=== PATIENT | female | born 1955 | race Caucasian/White ===

== ENCOUNTER 2017-02-02 11:29 | Inpatient (IN) | payer OTHER, MEDICARE ==
[~2017-02-02] VITALS: Ht 152.4 cm; Wt 84.0 kg
[2017-02-27] MEDS ORDERED: GABA300C5 PO (14:34)
[2017-02-27] MEDS ORDERED: HYDR25TA5 PO (14:34)
[2017-02-27] MEDS ORDERED: VENTAER INH (14:34)
[2017-02-27] MEDS ORDERED: CALC1TAB53 PO (14:34)
[2017-02-27] MEDS ORDERED: HYDR-3516 PO (14:34)
[2017-02-27] MEDS ORDERED: DICY20TA10 PO (14:34)
[2017-02-27] MEDS ORDERED: MONT10TA4 PO (14:34)
[2017-02-27] MEDS ORDERED: ASPI1TAB69 PO (14:34)
[2017-02-27] MEDS ORDERED: VITA10003 PO (14:34)
[2017-02-27] MEDS ORDERED: ATOR40TA16 PO (14:34)
[2017-02-27] MEDS ORDERED: AMLO10TA2 PO (14:34)
[2017-03-02] MEDS ORDERED: METOPROLOL TARTRATE 25 MG TAB PO PRN (09:00)
[2017-03-02] MEDS ORDERED: CHLORHEXIDINE GLUCONATE 2 % 1 PACK (2 CLOTHS) TOPICAL PRN (09:00)
[2017-03-02] MEDS ORDERED: SODIUM CHLORID 0.9% 500 ML IV PRN (09:00)
[2017-03-02] MEDS ORDERED: ceFAZolin 2 GM PREMIX 50 ML IV SCH (09:00)
[2017-03-02] MEDS ORDERED: INSULIN HUMAN REGULAR 1,000 UNITS/10 ML VIAL SQ PRN (09:00)
[2017-03-02] MEDS ORDERED: POVIDONE IODINE 5% (ANTISEPSIS KIT) 4 APPLICATIONS EACH NARE PRN (09:00)
[2017-03-02] MEDS ORDERED: LACTATED RINGER'S 1000 ML IV PRN (09:00)
[2017-03-02] MEDS ORDERED: HEPARIN SODIUM - SQ 10,000 UNITS/ML VIAL SQ SCH (09:00)
[2017-03-02] MEDS ORDERED: CLAR10CA3 PO (09:10)
[2017-03-02] MEDS ORDERED: ZYRT10CA PO (09:10)
[2017-03-02 09:11] VITALS: BP 185/87; PULSE 105; RESP 18; TEMP 98; O2SAT 98
[2017-03-02] MEDS ORDERED: ONDANSETRON HCL 4 MG/2 ML VIAL ONE (09:25)
[2017-03-02] MEDS ORDERED: ZOFR4TAB3 SL (09:26)
[2017-03-02] MEDS ORDERED: RESP: ALBUTEROL 2.5 MG/3 ML NEB (SCH) ONE (09:28)
[2017-03-02] MEDS ORDERED: METR-1 PO (09:29)
[2017-03-02 09:36] LABS: BASOPHIL # 0.1 TH/MM3 (0-0.2); BASOPHIL % 0.7 % (0.0-2.0); EOSINOPHIL # 0.1 TH/MM3 (0-0.4); EOSINOPHIL % 0.8 % (0.0-4.0); HEMATOCRIT 40.6 % (35.0-46.0); HEMO FLAGS DIFF FINAL; LYMPH % 21.2 % (9.0-44.0); LYMPHOCYTE # 1.8 TH/MM3 (1.0-4.8); MEAN CELL VOLUME 85.5 FL (80.0-100.0); MEAN CORPUSCULAR HEMOGLOBIN 28.8 PG (27.0-34.0); MEAN CORPUSCULAR HGB CONC 33.7 % (32.0-36.0); MONO % 5.5 % (0.0-8.0); NEUT % 71.8 % (16.0-70.0); PLATELET COUNT 226 TH/MM3 (150-450); RED BLOOD COUNT 4.74 MIL/MM3 (4.00-5.30); WHITE BLOOD COUNT 8.4 TH/MM3 (4.0-11.0)
[2017-03-02 09:45] LABS: APTT (PATIENT) 25.7 SEC (24.3-30.1); PROTHROMBIN TIME - PATIENT 10.5 SEC (9.8-11.6)
[2017-03-02 10:08] LABS: ALKALINE PHOSPHATASE 116 U/L (45-117); ALT (GPT) 42 U/L (10-53); ANION GAP 12 MEQ/L (5-15); AST (GOT) 29 U/L (15-37); BICARBONATE 27.3 MEQ/L (21.0-32.0); BLOOD UREA NITROGEN 7 MG/DL (7-18); CHLORIDE 99 MEQ/L (98-107); GLOMERULAR FILTRATION RATE 56 ML/MIN (>89); SODIUM (NA) 138 MEQ/L (136-145); TOTAL BILIRUBIN ADULT 0.7 MG/DL (0.2-1.0)
[2017-03-02 10:10] LABS: POTASSIUM 2.6 MEQ/L (3.5-5.1)
[2017-03-02] MEDS ORDERED: NS + KCL 40 MEQ INJ 1,000 ML IV SCH (12:00)
[2017-03-02] MEDS ORDERED: HYDROmorphone HCL PF 2 MG/ML VIAL ONE (12:15)
[2017-03-02] MEDS ORDERED: ACETAMINOPHEN 1000 MG/100 ML VIAL IV ONE (12:15)
[2017-03-02] MEDS ORDERED: SUGAMMADEX SODIUM 200 MG/2 ML VIAL IV PUSH ONE ×2 (12:15)
[2017-03-02] MEDS ORDERED: POTASSIUM CHLORIDE INJ 40 MEQ in SODIUM CHLORID 0.9% 500 ML INJ 500 ML IV ONE (12:15)
[2017-03-02] MEDS ORDERED: FAMOTIDINE 20 MG/2 ML VIAL ONE (12:16)
--- NOTE | 2017-03-02 13:04 | EKG ---
Date Performed: 03/02/2017 Time Performed: 09:50:52 PTAGE: 61 years EKG: SINUS TACHYCARDIA LOW QRS VOLTAGE IN PRECORDIAL LEADS NONSPECIFIC T-WAVE ABNORMALITY ABNORM AL RHYTHM ECG NO PREVIOUS TRACING DOCTOR: Alberto Gray Interpretating Date/Time 03/02/2017 13:01:42
[2017-03-02] MEDS ORDERED: PROPOFOL 200 MG/20 ML AMP IV ONE (14:05)
[2017-03-02] MEDS ORDERED: KETOROLAC TROMETHAMINE 60 MG/2 ML (IM) VIAL IM ONE (14:06)
[2017-03-02] MEDS ORDERED: ONDANSETRON HCL 4 MG/2 ML VIAL IV PUSH ONE (14:07)
[2017-03-02] MEDS ORDERED: LACTATED RINGER'S 1000 ML INJ 2,000 ML IV ONE (14:07)
[2017-03-02] MEDS ORDERED: ceFAZolin INJ 1,000 MG VIAL IV ONE (15:00)
[2017-03-02] MEDS ORDERED: MIDAZOLAM HCL 2 MG/2 ML VIAL ONE (15:07)
[2017-03-02] MEDS ORDERED: NALOXONE HCL 0.4 MG/ML AMP IV PRN (16:15)
[2017-03-02] MEDS ORDERED: SODIUM CHLORIDE 0.9% FLUSH 10 ML FLUSH IV FLUSH PRN (16:15)
[2017-03-02] MEDS ORDERED: ONDANSETRON ODT 4 MG TAB SL PRN (16:15)
[2017-03-02] MEDS ORDERED: DICYCLOMINE HCL 20 MG TAB PO PRN (16:15)
[2017-03-02] MEDS ORDERED: diphenhydrAMINE HCL 25 MG CAP PO PRN (16:15)
[2017-03-02] MEDS ORDERED: KETOROLAC TROMETHAMINE 30 MG/ML (IVP) VIAL IVP SCH (16:15)
[2017-03-02] MEDS: RESP: ALBUTEROL 2.5 MG/3 ML NEB (SCH) NEB ×2 (16:30→23:46)
[2017-03-02] MEDS: D5-1/2 NS + KCL 40 MEQ INJ 1,000 ML IV SCH (16:30)
[2017-03-02] MEDS: MORPHINE SULFATE 30 MG/30 ML PCA IV SCH (16:49)
[2017-03-02] MEDS ORDERED: DO NOT ADM ANY ANTICOAGULANT DRUGS PRN (17:45)
[2017-03-02 18:17] VITALS: BP 140/64; PULSE 120; RESP 16; TEMP 96.6; O2SAT 98
[2017-03-02] MEDS: SODIUM CHLORIDE 0.9% FLUSH 10 ML FLUSH IV FLUSH SCH (21:00)
[2017-03-02 21:30] VITALS: BP 130/63; PULSE 111; RESP 18; TEMP 98.1; O2SAT 98
[2017-03-02] MEDS: GABAPENTIN 300 MG CAP PO SCH (21:42)
[2017-03-02] MEDS: MONTELUKAST SODIUM 10 MG TAB PO SCH (21:42)
[2017-03-02] MEDS: KETOROLAC TROMETHAMINE 30 MG/ML (IVP) VIAL IVP SCH (21:42)
[2017-03-02] MEDS: ATORVASTATIN 40 MG TAB PO SCH (21:42)
[2017-03-02] MEDS: PCA - TOTAL MG MORPHINE DELIVERED PER SHIFT SCH (22:12)
[2017-03-02 23:48] VITALS: O2SAT 98
[2017-03-03] VITALS (8 sets, daily range): BP systolic 118–133; BP diastolic 60–66; PULSE 84–114; RESP 15–18; TEMP 96.6–98.3; O2SAT 93–98
[2017-03-03] MEDS: D5-1/2 NS + KCL 40 MEQ INJ 1,000 ML IV SCH ×3 (00:07→08:41)
[2017-03-03] MEDS: KETOROLAC TROMETHAMINE 30 MG/ML (IVP) VIAL IVP SCH ×4 (04:39→22:54)
[2017-03-03] MEDS: PCA - TOTAL MG MORPHINE DELIVERED PER SHIFT SCH ×3 (06:10→22:00)
[2017-03-03] MEDS: RESP: ALBUTEROL 2.5 MG/3 ML NEB (SCH) NEB ×3 (07:39→23:48)
[2017-03-03] MEDS: CETIRIZINE HCL 10 MG TAB PO SCH (08:41)
[2017-03-03] MEDS: HYDROCHLOROTHIAZIDE 25 MG TAB PO SCH (08:41)
[2017-03-03] MEDS: SODIUM CHLORIDE 0.9% FLUSH 10 ML FLUSH IV FLUSH SCH ×2 (08:42→22:54)
[2017-03-03] MEDS ORDERED: LORATADINE 10 MG TAB PO SCH (09:00)
[2017-03-03 09:15] LABS: AUTOMATED NEUTROPHIL # 11.7 TH/MM3 (1.8-7.7); BASOPHIL % 0.1 % (0.0-2.0); HEMATOCRIT 34.7 % (35.0-46.0); LYMPH % 11.3 % (9.0-44.0); LYMPHOCYTE # 1.6 TH/MM3 (1.0-4.8); MEAN CELL VOLUME 86.6 FL (80.0-100.0); MEAN CORPUSCULAR HEMOGLOBIN 29.4 PG (27.0-34.0); MEAN CORPUSCULAR HGB CONC 33.9 % (32.0-36.0); MONO % 6.4 % (0.0-8.0); NEUT % 82.2 % (16.0-70.0); PLATELET COUNT 225 TH/MM3 (150-450); RED CELL DISTRIBUTION WIDTH 14.3 % (11.6-17.2); WHITE BLOOD COUNT 14.2 TH/MM3 (4.0-11.0)
[2017-03-03 09:25] LABS: HEMO FLAGS AUTO DIFF
[2017-03-03 10:06] LABS: BICARBONATE 24.5 MEQ/L (21.0-32.0); POTASSIUM 3.5 MEQ/L (3.5-5.1)
[2017-03-03 10:33] LABS: SCAN/DIFF AUTO DIFF CONFIRMED
[2017-03-03] MEDS: MORPHINE SULFATE 30 MG/30 ML PCA IV SCH (11:41)
--- NOTE | 2017-03-03 12:47 | MP ---
cc: SAMMIE PETE KELLY L. MD MATHURA, SHIVA DATE OF SURGERY 03/02/2017 PREOPERATIVE DIAGNOSIS Approximately 18 cm complex pelvic mass. POSTOPERATIVE DIAGNOSIS Right ovarian cystadenofibroma with torsion, inflammation necrosis and extensive adhesions. PROCEDURE Exploratory laparotomy, total abdominal hysterectomy, omentectomy, extensive lysis of adhesions. 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 Her history was such that she has a tendency towards adhesions. She has had an open cholecystectomy. She has also had a tubal ligation. She has had a prior exploratory laparotomy for intestinal obstruction with intestinal resection due to adhesions. She has been counseled regarding these findings, recommended open surgery, did not feel she was a good candidate for laparoscopy. She is seen again the preop holding area where these findings and recommendations are discussed. Questions were answered. She expressed good understanding and wishes to move forward with surgery. Irrespective of the pathology, she is in favor of complete hysterectomy to remove the uterus and cervix, both tubes and ovaries and she understands if a malignancy is detected, additional staging steps are recommended. FINDINGS Entry into the peritoneal was slow and meticulous due to scar tissue in the abdominal wall. Omentum was densely adherent to the abdominal wall overlying the mass. The transverse colon was adherent below the umbilicus in the reason of the midline incision. Loops of small bowel wall were also adherent. Lysis of adhesions were necessary to take these adhesions down. The mass was surrounded by inflammatory adhesions circumferentially stuck to all tissues next to it. Many of the adhesions were filmy and could be removed with blunt dissection somewhere firm and required sharp dissection to remove loops of bowel, mesentery and adjacent structures. Once the mass was able to be isolated, it was clearly torsed with what appeared to be 720 degrees of torsion on the ovarian vessels. The left ovary was enlarged to approximately 4 cm, had similar characteristics and ultimately pathology showed bilateral ovarian cyst adenofibromas. The uterus itself was small and appeared normal. There were no peritoneal implants. The liver diaphragm edges were smooth. The omentum grossly appeared normal despite all the adhesions. The small, large bowel, and adjacent mesentery appeared normal. At the conclusion of the case, all significant adhesions had been lysed and there was advent of normal anatomy. Visual and manual inspection confirmed that adhesions had been taken down. There were no other areas of abnormality. No adenopathy. No remaining foreign objects in the peritoneal cavity. STATEMENT OF COMPLEXITY The complexity of this case was significantly increased due to the dense extensive adhesions requiring a significant amount of time to lyse adhesions to gain safe entry into the peritoneal cavity. To restore normal anatomy and to accomplish surgical objectives, modifier should be applied accordingly. PROCEDURE The patient taken to the operating room, placed in the dorsal lithotomy position after general endotracheal anesthesia was administered. A time-out was undertaken. The patient was identified by sight recognition and hospital ID bracelet and the proposed procedure was reviewed and confirmed. She was carefully positioned in Eladio stirrups. Her arms were out to the sides. She was prepped and draped in a sterile fashion. Farrar catheter placed in the bladder. Ioban was used to cover the abdominal wall and an oral gastric tube was in the stomach on suction. An incision was made through the skin and carried down to the subcutaneous tissue using cautery down to level of the fascia. Sharp dissection was used to separate the fascia until a window of peritoneum was isolated. This was elevated with hemostats and sharp dissection was used to gain entry into the peritoneal cavity. Lysis of adhesion was required upon entry as described above to mobilize the omentum and free loops of bowel laterally to gain safe access as the peritoneal incision was extended. Adhesions were taken down to mobilize the transverse colon which was overlying the region of the incision below the umbilicus. Blunt and sharp dissection was used circumferentially to gradually remove adhesions around all aspects of the mass with care taken to leave the capsule of the mass intact. There was no rupture capsule and no spill. As the left lateral and posterior sides were mobilized that allowed access to a pelvic portion in the cul-de-sac where adhesions were lysed. Then the mass was gently moved to the left as though it helped gain access to the right side where blunt sharp dissection was used to free up adhesions circumferentially until the mass could be elevated out of the abdominal wall attached by the torsed gonadal vessels. In the process of trying to gain entry, the omentum was fragmented and adherent and parts appeared to be possibly devitalized so an omentectomy was performed as a necessity to gain entry into the peritoneal cavity. Nonvascular attachments were taken down from the transverse colon with sharp dissection. Vascular attachments were isolated, clamped, cut and suture ligated with 2-0 Vicryl sutures until the majority of the infracolic omentum had been removed. The right round ligament was doubly suture ligated and transected. The anterior and posterior leafs of the broad ligament were opened. The right ureter was identified. The right infundibulopelvic ligament was isolated. The intervening peritoneum was opened. The infundibulopelvic ligament was doubly clamped the level of the pelvic brim, cut and doubly suture ligated. The right utero-ovarian ligament was clamped, cut and suture ligated thereby removing the right tube and ovary with approximately 18 cm mass, sent for frozen section analysis with findings as described above. The posterior peritoneum opened along the right side of the uterus and cervix and the right vesicouterine peritoneum was dissected off the lower uterine segment and cervix and the right uterine vessels were skeletonized. Attention was directed toward the left side. The left round ligament doubly suture ligated and transected. Anterior and posterior leafs of the broad ligament were opened. The left ureter was identified. The left infundibulopelvic ligament was isolated. The intervening peritoneum was opened. The infundibulopelvic ligament was dissected, isolated to the level of the pelvic brim, where was doubly clamped, cut and suture ligated. Posterior peritoneum opened along the left side of the uterus and cervix. The left vesicouterine peritoneum was dissected off the lower uterine segment and cervix. The uterine vessels were skeletonized. The uterine vessels were now clamped, cut and suture ligated bilaterally as were the cardinal, paracervical, and uterosacral ligaments in a stepwise fashion where the tissues were clamped, cut and suture ligated with 0 Vicryl sutures until curved Herber's clamps could be placed at the lateral vaginal angles below the cervix as the bladder flap had been dissected well below the level of the cervix. Sharp dissection was then used to separate the cervix from the upper vagina. Specimen was inspected. The entire cervix was removed and the specimen included uterus, cervix and the attached left tube and ovary sent for frozen section with findings as described above. The vaginal cuff was closed starting at the corners where a full-thickness [id number] closure incorporated the edge of the uterosacral ligament, posterior peritoneum and tied securely. [id number]-[id number] 0 Vicryl sutures were used to render the vaginal cuff completely well supported hemostatic. The pelvis was thoroughly irrigated. There was good margin between the bladder edge and the vaginal cuff suture line. Small bleeders rendered hemostatic with bipolar cautery and hemostatic Priyanka agent was added to the pelvis. The Bookwalter retractor had been assembled and lap pads had been used to gain exposure prior to completing the hysterectomy now the lap pads were removed and the Bookwalter retractor was disassembled. Visual and manual inspection confirmed there were no remaining foreign objects in the peritoneal cavity. Sharp dissection was used to further lyse adhesions and to gain access better to the abdomen for inspection of the anatomy as described above and to confirm that all the adhesions had been taken down. Preliminary counts were correct. There were no remaining foreign objects in the peritoneal cavity and attention was directed toward closing. The abdominal wall was closed with zero looped PDS in a modified running Smead-Lord fashion starting at apices and meeting in the midpoint where the sutures were tied. The subcutaneous tissues were irrigated. It should be noted that prior to closure of the abdominal wall, a sheet of Seprafilm was placed underneath the abdominal incision and extended down into the pelvis in the region of the vaginal cuff suture line. The subcutaneous tissue had been irrigated prior to reapproximation of Mary Ann's fascia. The skin edges were in close proximity without tension. There was a mild keloid and some irregularity given her prior surgical incision and it was felt that the skin edges were best reapproximated with small roseanna which were used to close the skin. Steri-Strips and dry sterile dressing was then placed over the incision. She was returned to dorsal supine position. Preliminary and now final counts were correct and she was pending reversal of anesthesia when I left the operating room to precede her to the Post Anesthesia Care Unit. MD STACIE Callaway/ARIELLA /8:31 AM /12:26 PM
[2017-03-03] MEDS: MONTELUKAST SODIUM 10 MG TAB PO SCH (22:53)
[2017-03-03] MEDS: ATORVASTATIN 40 MG TAB PO SCH (22:53)
[2017-03-03] MEDS: GABAPENTIN 300 MG CAP PO SCH (22:53)
[2017-03-04 00:15] VITALS: BP 110/56; PULSE 95; RESP 16; TEMP 97.8; O2SAT 95
[2017-03-04 05:15] VITALS: BP 131/68; PULSE 94; RESP 18; TEMP 98.2; O2SAT 94
[2017-03-04] MEDS: D5-1/2 NS + KCL 40 MEQ INJ 1,000 ML IV SCH (05:27)
[2017-03-04] MEDS: KETOROLAC TROMETHAMINE 30 MG/ML (IVP) VIAL IVP SCH ×4 (05:37→21:00)
[2017-03-04] MEDS: PCA - TOTAL MG MORPHINE DELIVERED PER SHIFT SCH (05:37)
--- NOTE | 2017-03-04 07:23 | PD.ONC.PN ---
Subjective Subjective Remarks POD #2 pt stating that she is having more cramping today but the Toradol is helping she has been OOB to chair Farrar has been D/Cd eating/drinking without nausea/vomiting using IS Objective Data Date Time Temp Pulse Resp B/P Pulse Ox O2 Delivery O2 Flow Rate FiO2 03/04/17 06:49 16 03/04/17 05:37 16 03/04/17 05:15 98.2 94 18 131/68 94 03/04/17 00:15 97.8 95 16 110/56 95 03/03/17 23:49 98 21 03/03/17 22:00 16 03/03/17 20:30 98.1 104 18 133/66 98 03/03/17 16:00 97.7 114 18 118/64 97 03/03/17 14:00 14 03/03/17 12:00 97.8 94 15 97 03/03/17 11:41 16 03/03/17 08:00 96.6 110 16 98 03/03/17 07:42 93 Nasal Cannula 2.00 Result Diagram: 03/03/17 0836 03/03/17 0836 Laboratory Results Laboratory Tests Test 03/03/17 08:36 White Blood Count 14.2 TH/MM3 Red Blood Count 4.00 MIL/MM3 Hemoglobin 11.8 GM/DL Hematocrit 34.7 % Mean Corpuscular Volume 86.6 FL Mean Corpuscular Hemoglobin 29.4 PG Mean Corpuscular Hemoglobin 33.9 % Concent Red Cell Distribution Width 14.3 % Platelet Count 225 TH/MM3 Mean Platelet Volume 8.2 FL Neutrophils (%) (Auto) 82.2 % Lymphocytes (%) (Auto) 11.3 % Monocytes (%) (Auto) 6.4 % Eosinophils (%) (Auto) 0.0 % Basophils (%) (Auto) 0.1 % Neutrophils # (Auto) 11.7 TH/MM3 Lymphocytes # (Auto) 1.6 TH/MM3 Monocytes # (Auto) 0.9 TH/MM3 Eosinophils # (Auto) 0.0 TH/MM3 Basophils # (Auto) 0.0 TH/MM3 CBC Comment AUTO DIFF Differential Comment AUTO DIFF CONFIRMED Sodium Level 139 MEQ/L Potassium Level 3.5 MEQ/L Chloride Level 105 MEQ/L Carbon Dioxide Level 24.5 MEQ/L Anion Gap 10 MEQ/L Blood Urea Nitrogen 6 MG/DL Creatinine 0.82 MG/DL Estimat Glomerular Filtration 71 ML/MIN Rate Random Glucose 174 MG/DL Calcium Level 7.8 MG/DL Administered Medications Medications (Trade) Dose Ordered Sig/Vince Route PRN Reason Start Time Stop Time Status Last Admin Dose Admin Amlodipine Besylate (Norvasc) 10 mg DAILY PO 03/03/17 09:00 03/03/17 08:41 Atorvastatin Calcium (Lipitor) 40 mg HS PO 03/02/17 21:00 03/03/17 22:53 Cetirizine HCl (ZyrTEC) 10 mg DAILY PO 03/03/17 09:00 03/03/17 08:41 Gabapentin (Neurontin) 900 mg HS PO 03/02/17 21:00 03/03/17 22:53 Hydrochlorothiazide (Hydrodiuril) 25 mg DAILY PO 03/03/17 09:00 03/03/17 08:41 Montelukast Sodium 10 mg 10 mg HS PO 03/02/17 21:00 03/03/17 22:53 Potassium Chloride/Dextrose/ Sod Cl (D5-1/2 NS + KCl 40 Meq Inj) 1,000 ml @ 30 mls/hr Q24H IV 03/02/17 16:07 03/03/17 08:41 Sodium Chloride (NS Flush) 2 ml BID IV FLUSH 03/02/17 21:00 03/03/17 22:54 CANTEEN OPERATOR Dosage Infused (Pha) 1 Q8HR .XX 03/02/17 22:00 03/04/17 05:37 Ketorolac Tromethamine (Toradol Inj) 15 mg Q6H IVP 03/02/17 22:00 03/05/17 16:01 03/04/17 05:37 Objective Remarks GENERAL: Well-nourished, well-developed patient. SKIN: Warm and dry. HEAD: Normocephalic. EYES: No scleral icterus. No injection or drainage. NECK: Supple, trachea midline. CARDIOVASCULAR: Regular rate and rhythm without murmurs. RESPIRATORY: Breath sounds equal bilaterally. No accessory muscle use. GASTROINTESTINAL: midline dressing dry without new drainage EXTREMITIES: No cyanosis, or edema. MUSCULOSKELETAL: Adequate muscle tone. PSYCHIATRIC: Appropriate mood and affect; insight and judgment normal. Assessment/Plan Problem List: (1) Post-operative state Status: Acute Plan: POD #2 will D/C CANTEEN OPERATOR today and transition to oral pain meds linda has been D/Cd pt instructed not to get OOB to BR without assistance CBC w/diff BMP decreased IVF to KVO if labs OK will D/C OOB to chair and ambulate today with expectation of D/C home tomorrow. (2) Pelvic mass in female Status: Resolved Plan: s/p X Lap for resection of pelvic mass with hysterectomy, BSO and omentectomy. POD #2 Mark Storm March 04, 2017 07:22
[2017-03-04] MEDS: RESP: ALBUTEROL 2.5 MG/3 ML NEB (SCH) NEB ×2 (08:00→16:33)
[2017-03-04 08:45] VITALS: BP 122/68; PULSE 96; RESP 16; TEMP 98.4; O2SAT 96
[2017-03-04 08:51] LABS: AUTOMATED NEUTROPHIL # 8.8 TH/MM3 (1.8-7.7); BASOPHIL # 0.1 TH/MM3 (0-0.2); BASOPHIL % 0.5 % (0.0-2.0); EOSINOPHIL # 0.1 TH/MM3 (0-0.4); EOSINOPHIL % 1.1 % (0.0-4.0); HEMATOCRIT 30.6 % (35.0-46.0); HEMO FLAGS DIFF FINAL; LYMPH % 15.3 % (9.0-44.0); LYMPHOCYTE # 1.8 TH/MM3 (1.0-4.8); MEAN CELL VOLUME 86.9 FL (80.0-100.0); MEAN CORPUSCULAR HEMOGLOBIN 29.5 PG (27.0-34.0); MEAN CORPUSCULAR HGB CONC 33.9 % (32.0-36.0); NEUT % 77.1 % (16.0-70.0); PLATELET COUNT 187 TH/MM3 (150-450); RED BLOOD COUNT 3.52 MIL/MM3 (4.00-5.30); RED CELL DISTRIBUTION WIDTH 14.2 % (11.6-17.2); WHITE BLOOD COUNT 11.5 TH/MM3 (4.0-11.0)
[2017-03-04] MEDS: SODIUM CHLORIDE 0.9% FLUSH 10 ML FLUSH IV FLUSH SCH ×2 (09:00→20:57)
[2017-03-04 09:04] LABS: POTASSIUM 3.6 MEQ/L (3.5-5.1)
[2017-03-04] MEDS: CETIRIZINE HCL 10 MG TAB PO SCH (09:15)
[2017-03-04] MEDS: ACETAMINOPHEN/HYDROcodone 325 MG/5 MG TAB PO PRN ×3 (09:15→13:43)
[2017-03-04] MEDS: HYDROCHLOROTHIAZIDE 25 MG TAB PO SCH (09:15)
[2017-03-04 12:45] VITALS: BP 142/78; PULSE 100; RESP 16; TEMP 96.8; O2SAT 96
[2017-03-04 16:00] VITALS: BP 100/62; PULSE 100; RESP 16; TEMP 98.1; O2SAT 96
[2017-03-04] MEDS ORDERED: ACETAMINOPHEN/HYDROcodone 325 MG/5 MG TAB PO ONE (18:15)
[2017-03-04] MEDS ORDERED: ACETAMINOPHEN/HYDROcodone 325 MG/5 MG TAB PO PRN ×2 (18:45→19:00)
[2017-03-04 20:15] VITALS: BP 120/59; PULSE 90; RESP 16; TEMP 97.6; O2SAT 96
[2017-03-04] MEDS: ATORVASTATIN 40 MG TAB PO SCH (20:58)
[2017-03-04] MEDS: MONTELUKAST SODIUM 10 MG TAB PO SCH (20:58)
[2017-03-04] MEDS: GABAPENTIN 300 MG CAP PO SCH (20:58)
[2017-03-05] VITALS: BP 118/57; PULSE 85; RESP 16; TEMP 98; O2SAT 94
[2017-03-05] MEDS: D5-1/2 NS + KCL 40 MEQ INJ 1,000 ML IV SCH (01:53)
[2017-03-05] MEDS: KETOROLAC TROMETHAMINE 30 MG/ML (IVP) VIAL IVP SCH (03:34)
[2017-03-05 04:15] VITALS: BP 119/59; PULSE 82; RESP 16; TEMP 97.2; O2SAT 95
[2017-03-05] MEDS ORDERED: HYDR-3516 PO (07:41)
--- NOTE | 2017-03-05 07:56 | HHI.DS ---
Discharge Summary Admission Date March 02, 2017 at 07:54 Discharge Date: March 05, 2017 Admitting Diagnosis pelvic mass (1) Pelvic mass in female Diagnosis: Principal Procedures X Lap with resection of pelvic mass, hysterectomy with BSO and omentectomy. Brief History This is a 61 year old female who started having pelvic/abdominal pain. Imaging shown at least an 18cm pelvic mass that appeared to be arising from an ovary. CBC/BMP: 03/04/17 0820 03/04/17 0820 Significant Findings Laboratory Tests Test 03/02/17 03/03/17 03/04/17 08:50 08:36 08:20 Neutrophils (%) (Auto) 71.8 % 82.2 % 77.1 % (16.0-70.0) (16.0-70.0) (16.0-70.0) Potassium Level 2.6 MEQ/L (3.5-5.1) Estimat Glomerular Filtration 56 ML/MIN (>89) 71 ML/MIN (>89) Rate Random Glucose 149 MG/DL 174 MG/DL 127 MG/DL (74-106) (74-106) (74-106) White Blood Count 14.2 TH/MM3 11.5 TH/MM3 (4.0-11.0) (4.0-11.0) Hematocrit 34.7 % 30.6 % (35.0-46.0) (35.0-46.0) Neutrophils # (Auto) 11.7 TH/MM3 8.8 TH/MM3 (1.8-7.7) (1.8-7.7) Blood Urea Nitrogen 6 MG/DL (7-18) Calcium Level 7.8 MG/DL 7.8 MG/DL (8.5-10.1) (8.5-10.1) Red Blood Count 3.52 MIL/MM3 (4.00-5.30) Hemoglobin 10.4 GM/DL (11.6-15.3) PE at Discharge General: A & O X 3 in NAD, sitting up in bed eating breakfast heart: RRR with no MMR Lungs: CTA bilat ABD: SS with roseanna are C/D/I without any drainage or S/S of infection LE: teds and scds Hospital Course Patent was taken to surgery for Xlap resection of pelvic mass, hysterectomy with BSO and omentectomy with lysis of adhesions. Hospital course has been uneventful without any complications. Pt Condition on Discharge: Good Discharge Disposition: Discharge Home Discharge Instructions DIET: Follow Instructions for: As Tolerated, No Restrictions Activities you can perform: Pelvic Rest Activities to avoid: Lifting/Bending, Strenuous Activity, Sexual Activity Follow up Referrals: Appointment for Follow Up - 2 Weeks @ [facility] New Medications: Hydrocodone-Acetaminophen (Hydrocodone-Acetaminophen) 5-325 mg Tab 1 TAB PO Q4H PRN PAIN 1-5 #30 Ref 0 TAB Continued Medications: Albuterol 18 GM Inh (Ventolin Hfa 18 GM Inh) 90 Mcg/Act Aer 1 PUFF INH Q4H PRN SHORTNESS OF BREATH #1 Ref 0 INHALER Amlodipine (Amlodipine) 10 Mg Tab 10 MG PO DAILY Blood Pressure Management #30 Ref 0 TAB Aspirin (Aspirin) 81 Mg Tabdr 81 MG PO DAILY TAB Atorvastatin (Atorvastatin) 40 Mg Tab 40 MG PO HS Cholesterol Management #30 Ref 0 TAB Ajsvkzi-Ztcxlbjic-Cefz (Calcium & Magnesium + Zinc) 334-134-5 Mg Tab 1 TAB PO DAILY TAB Cetirizine (Zyrtec Allergy) 10 Mg Cap 10 MG PO DAILY Allergies Ref 0 CAP Cholecalciferol (Vitamin D-3) 1,000 Unit Tab 1000 UNITS PO DAILY #30 Ref 0 TAB Dicyclomine (Dicyclomine) 20 Mg Tab 20 MG PO QID PRN ABDOMINAL CRAMPS #120 Ref 0 TAB Gabapentin (Gabapentin) 300 Mg Cap 900 MG PO HS #90 Ref 0 CAP Hydrochlorothiazide (Hydrochlorothiazide) 25 Mg Tab 25 MG PO DAILY #30 Ref 0 TAB Hydrocodone-Acetaminophen (Hydrocodone-Acetaminophen) 5-325 mg Tab 1 TAB PO Q4H PRN PAIN Ref 0 TAB Metronidazole (Flagyl) 500 Mg Tab 500 MG PO DIRECTED Infection Ref 0 TAB Montelukast (Montelukast) 10 Mg Tab 10 MG PO HS #30 Ref 0 TAB Ondansetron Odt (Zofran Odt) 4 Mg Tab 4 MG SL Q8HR PRN Nausea/Vomiting #30 Ref 0 TAB Mark Storm March 05, 2017 07:55
[2017-03-05] MEDS: CETIRIZINE HCL 10 MG TAB PO SCH (08:30)
[2017-03-05] MEDS: HYDROCHLOROTHIAZIDE 25 MG TAB PO SCH (08:30)
[2017-03-05] MEDS: SODIUM CHLORIDE 0.9% FLUSH 10 ML FLUSH IV FLUSH SCH (08:32)
[2017-03-05 08:54] VITALS: BP 127/58; PULSE 93; RESP 16; TEMP 96.5; O2SAT 96
== END 2017-03-05 09:47 | disposition home or self-care (01) | DRG 743 ==
LOC: HSDI 03-02 07:54 → HOCB 03-02 18:12
PROVIDERS: ADMIT Obstetrics & Gynecology Gynecologic Oncology; ATTEND Obstetrics & Gynecology Gynecologic Oncology
PROC: 0UTC0ZZ Resection of Cervix, Open Approach (ICD-10-PCS; 2017-03-02)
PROC: 0UT70ZZ Resection of Bilateral Fallopian Tubes, Open Approach (ICD-10-PCS; 2017-03-02)
PROC: 0DNW0ZZ Release Peritoneum, Open Approach (ICD-10-PCS; 2017-03-02)
PROC: 0UT90ZZ Resection of Uterus, Open Approach (ICD-10-PCS; principal; 2017-03-02 12:39)
PROC: 0UT20ZZ Resection of Bilateral Ovaries, Open Approach (ICD-10-PCS; 2017-03-02 12:39)
DX: D27.1 Benign neoplasm of left ovary (principal); E66.9 Obesity, unspecified; I10 Essential (primary) hypertension; K66.0 Peritoneal adhesions (postprocedural) (postinfection); K21.9 Gastro-esophageal reflux disease without esophagitis; M79.7 Fibromyalgia; Z68.36 Body mass index [BMI] 36.0-36.9, adult
CPT/HCPCS: 80048; 80053; 85025; 85610; 85730; 86850; 86900; 86901; 86920; 88112; 88305; 88307; 88331; 93005; 94150; 94640; 94664; C1765; J0131; J0690; J1170; J1644; J1885; J2250; J2270; J2405; J3010; J3480; J7040; J7120; J7613